=== PATIENT | male | born 1965 | race Caucasian/White ===

== ENCOUNTER 2018-05-28 19:38 | Emergency (ER) | payer BC ==
--- NOTE | 2018-05-28 20:44 | CT ---
NONCONTRAST ENHANCED CT IMAGES ABDOMEN AND PELVIS: 05/28/18 Comparison made to previous exam from 10/26/16. HISTORY: Hematuria. Left sided pain. Noncontrast enhanced CT images of the abdomen and pelvis demonstrates the lung bases to be unremarkab le. No evidence of free intraperitoneal air seen. The liver, spleen, pancreas, gallbladder, adrenal glands and right kidney are unremarkable. There is a moderate degree of left sided hydronephrosis. There is a 6 x 7 x 12 mm proximal left ureteral calculus at the left ureteropelvic junction. This is a large obstructing calculus resulting in the left sided hydronephrosis. More distally, the left ure ter is decompressed. The urinary bladder is unremarkable. IMPRESSION: 6 x 7 x 12 mm obstructing proximal left ureteral calculus. POS: [facility]
[2018-05-28 20:54] LABS: Bilirubin Negative (Negative); Blood, Urine Large (Negative); Clarity CLEAR (Clear); Glucose, Urine (Dipstick) Negative (Negative); Leukocyte Negative (Negative); Nitrite Negative (Negative); Protein, Urine (Dipstick) Negative (Neg-Trace); Specific Gravity, Urine 1.002 (1.002-1.036); Urobilinogen 0.2 mg/dL (0.2-1.0); pH, Urine 6.5 (5.0-9.0)
[2018-05-28 20:57] LABS: Bacteria/HPF None Seen HPF (None Seen); Hyaline Casts/LPF 0-3 HYALINE CAST LPF (0-3 Hyaline); RBC/HPF GREATER THAN 50-TNTC HPF (0-3); Squamous Epithelial None Seen HPF (0-3); WBC/HPF 0-3 HPF (0-3)
[2018-05-28 21:38] LABS: #Basophils 0.1 thou/uL (0.0-0.2); #Eosinphils 0.1 thou/uL (0.0-0.7); #Lymphocytes 3.3 thou/uL (1.20-3.40); #Monocytes 0.6 thou/uL (0.11-0.59); #Neutrophils 6.5 thou/uL (1.40-6.50); %Basophils 1.3 % (0.0-1.0); %Eosinophils 1.1 % (0.0-10.0); %Lymphocytes 31.1 % (21.0-51.0); %Monocytes 5.8 % (0.0-10.0); %Neutrophils 60.7 % (42.0-75.0); Hemoglobin 14.7 g/dL (14.0-18.0); Mean Corpuscular HGB CONC 33.7 g/dL (32.0-36.0); Mean Corpuscular Hemoglobin 31.5 pg (27.0-31.0); Mean Corpuscular Volume 93.5 fL (78.0-98.0); Mean Platelet Volume 6.2 fL (7.4-10.4); Platelet Count 270 thou/uL (130-400); RBC Distribution Width 11.9 % (11.5-14.5); Red Blood Cell (RBC) Count 4.65 mill/uL (4.70-6.10); White Blood Cell (WBC) Count 10.7 thou/uL (4.8-10.8)
[2018-05-28] MEDS ORDERED: HYDROcodone/Acetaminophen 5/325 mg Tablet ONE (21:40)
[2018-05-28 22:05] LABS: Anion Gap 11 mmol/L (10-20); BUN (Urea Nitrogen) 13 mg/dL (8.4-25.7); Calc. Creatinine Clearance 0 mL/min (70-130); Calcium 9.2 mg/dL (7.8-10.44); Carbon Dioxide 24 mmol/L (22-29); Chloride 107 mmol/L (98-107); Estimated GFR-MDRD Greater than 90; Glucose 93 mg/dL (70-105); Potassium 3.5 mmol/L (3.5-5.1); Sodium 138 mmol/L (136-145)
== END 2018-05-28 22:45 | disposition home or self-care (01) ==
LOC: ERS 19:38
DX: N13.2 Hydronephrosis with renal and ureteral calculous obstruction (principal); F17.210 Nicotine dependence, cigarettes, uncomplicated
CPT/HCPCS: 36415; 74176; 80048; 81003; 81015; 85025

== ENCOUNTER 2018-05-30 10:49 | Day surgery (SDC) | payer BC ==
[2018-05-30] MEDS ORDERED: Iothalamate Meglumine 60% 50 ML VIAL FS ONE (11:45)
[2018-05-30] MEDS ORDERED: Lidocaine 1% PF 5 ML VIAL ONE (12:50)
[2018-05-30] MEDS ORDERED: Ondansetron PF 4 MG/2 ML Vial ONE (12:50)
[2018-05-30] MEDS ORDERED: Dexamethasone 20 MG/5 ML VIAL ONE (12:50)
[2018-05-30] MEDS ORDERED: PHENYLEPHRINE-NS 100 MCG/ML 10 ML SYRINGE ONE (12:50)
[2018-05-30] MEDS ORDERED: Metoclopramide HCl 10 MG/2 ML VIAL ONE (12:50)
[2018-05-30] MEDS ORDERED: PROPOFOL 200 MG/20 ML VIAL ONE (12:50)
[2018-05-30] MEDS ORDERED: Midazolam HCl 2 mg/2 ml Vial ONE ×2 (13:09→13:12)
[2018-05-30] MEDS ORDERED: Fentanyl 100 MCG/2 ML VIAL ONE (13:12)
[2018-05-30] MEDS ORDERED: Levofloxacin 500 mg/D5W 100 ml Premix Bag ONE (13:24)
[2018-05-30] MEDS ORDERED: HYDROcodone/Acetaminophen 5/325 mg Tablet ONE (15:23)
--- NOTE | 2018-05-31 14:28 | OP ---
DATE OF PROCEDURE: 05/30/2018 PREOPERATIVE DIAGNOSIS: Left ureteral stone. POSTOPERATIVE DIAGNOSIS: Left ureteral stone. PROCEDURE: Cystoscopy, left retrograde pyelogram, insertion of ureteral stent 6 x 26. SURGEON: Sherrell Reynoso M.D. ANESTHESIA: General (desk airway). FINDINGS: Adequate placement of the stent after passing a wedged stone, mild hydronephrosis. COMPLICATIONS: No complications. Drain remaining, 6 x 28 Double J. SPECIMENS: Urine from left renal pelvis. ESTIMATED BLOOD LOSS: No blood loss. INDICATIONS: This is a 52-year-old male who was seen in the ER 2 days prior and presented to [facility] with concerns for obstructing left stone and persistent renal colic, so elected for urgent stent. The patient was brought to the room by Anesthesia and laid on table in supine position. After receiv ing general anesthetic, the patient was placed in lithotomy position. Perineum was prepped and drape d in sterile fashion. Using a 21-Sudanese cystoscope and a 30 degree lens, urethra was traversed and t he bladder inspected. The prostatic urethra showed no significant hypertrophy and was relatively markell rt. The bladder itself was without lesion. The ureteral orifices were in normal position and the le ft was intubated with a Pollack catheter up to the level of stone where the Pollack catheter could no t pass the stone, so a wire was used to pass the stone and then with significant pressure due to the wedging of the stone, the Pollack catheter was advanced beyond the stone over the wire and into the r enal pelvis where hydronephrotic drip was noted. Approximately 6 mL of pink-tinged urine was extract ed and sent for specimen. Retrograde pyelogram performed revealed mild hydronephrosis. Measurements were taken and then a 6 x 26 double-J was placed over a wire after removing the Pollack. A good coi l was visualized in the renal pelvis via fluoroscopy. A good coil was visualized in the bladder via cystoscopy. The scope was broken apart, bladder drained and then removed in its entirety. The patie nt tolerated procedure well and was then awakened and transferred to PACU in stable condition.
--- NOTE | 2018-06-04 08:14 | EKG ---
Test Reason : PREOP Blood Pressure : / mmHG Vent. Rate : 083 BPM Atrial Rate : 083 BPM P-R Int : 162 ms QRS Dur : 100 ms QT Int : 362 ms P-R-T Axes : 067 041 054 degrees QTc Int : 425 ms Normal sinus rhythm Normal ECG When compared with ECG of 24-SEP-2015 15:12, No significant change was found Confirmed by DR. Lionel MORE ([id number]) on 06/04/2018 8:14:40 AM Referred By: MARK Confirmed By:DR. Lionel MORE
== END 2018-05-30 15:50 | disposition home or self-care (01) ==
LOC: SDC 10:49
PROVIDERS: ATTEND Urology
PROC: 0T778DZ Dilation of Left Ureter with Intraluminal Device, Via Natural or Artificial Opening Endoscopic (ICD-10-PCS; principal; 2018-05-30)
DX: N13.2 Hydronephrosis with renal and ureteral calculous obstruction (principal); F17.200 Nicotine dependence, unspecified, uncomplicated
CPT/HCPCS: 74420; 81001; 87070; 87205; 93005; 93010; C1758; J1100; J1956; J2001; J2250; J2405; J2704; J2765; J3010; Q9961

== ENCOUNTER 2018-06-09 11:01 | Outpatient (CLI) | payer BC ==
[2018-06-09 12:15] LABS: Anion Gap 12 mmol/L (10-20); BUN (Urea Nitrogen) 13 mg/dL (8.4-25.7); Calc. Creatinine Clearance 0 mL/min (70-130); Calcium 9.5 mg/dL (7.8-10.44); Carbon Dioxide 26 mmol/L (22-29); Chloride 107 mmol/L (98-107); Estimated GFR-MDRD Greater than 90; Glucose 106 mg/dL (70-105); Potassium 4.1 mmol/L (3.5-5.1); Sodium 141 mmol/L (136-145)
[2018-06-09 12:20] LABS: Hemoglobin 14.6 g/dL (14.0-18.0); Mean Corpuscular HGB CONC 34.1 g/dL (32.0-36.0); Mean Corpuscular Hemoglobin 31.4 pg (27.0-31.0); Mean Corpuscular Volume 92.3 fL (78.0-98.0); Mean Platelet Volume 6.4 fL (7.4-10.4); Platelet Count 346 thou/uL (130-400); RBC Distribution Width 11.9 % (11.5-14.5); Red Blood Cell (RBC) Count 4.64 mill/uL (4.70-6.10); White Blood Cell (WBC) Count 8.9 thou/uL (4.8-10.8)
== END 2018-06-09 11:02 | disposition home or self-care (01) ==
LOC: LABBT 11:01
PROVIDERS: ATTEND Urology
DX: Z01.812 Encounter for preprocedural laboratory examination (principal); N20.1 Calculus of ureter; R35.1 Nocturia; Z12.5 Encounter for screening for malignant neoplasm of prostate
CPT/HCPCS: 80048; 81001; 85027; 87086; G0103

== ENCOUNTER 2018-06-10 06:33 | Day surgery (SDC) | payer BC ==
[2018-06-09 11:09] VITALS: BMI 28.7
[2018-06-10] MEDS ORDERED: Iothalamate Meglumine 60% 50 ML VIAL FS ONE (07:05)
[2018-06-10] MEDS ORDERED: Fentanyl 100 MCG/2 ML VIAL ONE (07:13)
[2018-06-10] MEDS ORDERED: Midazolam HCl 2 mg/2 ml Vial ONE (07:19)
[2018-06-10] MEDS ORDERED: Levofloxacin 500 mg/D5W 100 ml Premix Bag ONE (07:19)
--- NOTE | 2018-06-10 07:46 | RAD ---
KUB: Date: 06/10/18 INDICATION: Preop evaluation. COMPARISON: CT abdomen and pelvis without IV contrast dated 05/28/18. FINDINGS: There has been interval placement of a left ureteral stent. The proximal left ureteral stone seen at the L3 transverse process level is not appreciably changed. The stone measures approximately 1.2 x 0. 7 cm. Small phleboliths seen within the lower right hemipelvis. Bowel gas pattern is unobstructed. No acute osseous abnormality is evident. IMPRESSION: Stable proximal left ureteral stone with left ureteral stent placement. POS: [facility]
[2018-06-10] MEDS ORDERED: Furosemide 20 MG/2 ML VIAL ONE (08:43)
[2018-06-10] MEDS ORDERED: SUGAMMADEX SODIUM 200 MG/2 ML VIAL ONE (09:18)
[2018-06-10] MEDS ORDERED: SUGAMMADEX SODIUM 500 MG/5 ML VIAL ONE (09:18)
[2018-06-10] MEDS ORDERED: Phenazopyridine HCl 97.5 MG TABLET ONE ×2 (10:05)
--- NOTE | 2018-06-10 10:53 | OP ---
DATE OF PROCEDURE: 06/10/2018 PREOPERATIVE DIAGNOSIS: Left ureteral stone. POSTOPERATIVE DIAGNOSIS: Left ureteral stone. PROCEDURE: Cystoscopy, left ureteroscopy, left pyeloscopy, holmium laser lithotripsy, stone basketin g, stent placement 6 x 26. SURGEON: Sherrell Reynoso M.D. ANESTHESIA: General with endotracheal tube. FINDINGS: Adequate fragmentation of the stone as it migrated into the kidney itself with extraction of all sizable fragments. SPECIMENS: Stone. COMPLICATIONS: None. DRAIN REMAINING: A 6 x 26 double-J with a string. INDICATIONS: The patient is a 52-year-old male who is followed in the office and seen prior to the [facility] break and had an urgent stent placed for a large obstructing left ureteral stone. Given the density of the stone by CT scan I opted for laser lithotripsy via ureteroscopy versus ESWL in hop es that that would limit the procedures required and so we proceeded. TECHNIQUE: The patient was brought into the room by Anesthesia, laid on the table in supine position . After a general anesthetic his legs placed in lithotomy position and his perineum was prepped and draped in sterile fashion. The left leg was lowered. The right leg was elevated and then a cystosco pe was used to enter the bladder and grabbed the stent and brought out through the urethral meatus. A wire was placed through this and then the old stent was removed leaving the wire in place. Then, t he rigid ureteroscope was used to try to get to the level of stone; however, the angulation at the pe lvic brim was unable to accommodate the rigid scope so the scope was removed and then a double lumen catheter was placed in order to leave a second Super Stiff wire and then a larger ureteral catheter w as placed over that wire and up to the level of the stone. So now there was a safety wire and the Goodman per Stiff wire which was removed leaving the ureteral catheter in place, approximately 2-3 cm below t he stone. Then, the flexible ureteroscope was used to go over the Super Stiff wire before removing i t to the level of the stone where holmium laser lithotripsy was performed. Dusting was only partiall y effective so I switched to fragmentation; however, by this point, the stone and gone into the kidne y and into one of the calices that was chased into there, unable to adequately fragment it into multi ple smaller pieces which were then extracted. One was quite large and brought to the ureteral cathet er and then the holmium laser was used to fragment that again as it migrated again into the renal pel vis, but it was adequately fragmented and then all fragments were removed. I returned to the marilyn w here a good portion of fragmentation returned and at this point, there was only debris and some mucou s, but anything significant was extracted and sent out for specimen and a final pass into the renal u nit and ureter showed no significant fragments remaining, so at this point, the ureteral catheter was removed leaving the safety wire intact and then that was back fed over the cystoscope and a 6 x 26 d ouble-J was placed with the coil visualized in the renal pelvis, but somewhat extended to the upper p ole and a coil visualized in the bladder via cystoscopy. Scope was broken apart, bladder drained and removed carefully so as not to disturb the string which was then secured to the patient's penis. Th e patient was then awakened and transferred to PACU in stable condition.
[2018-06-10] MEDS ORDERED: Lidocaine 1% PF 5 ML VIAL ONE (16:30)
[2018-06-10] MEDS ORDERED: PHENYLEPHRINE-NS 100 MCG/ML 10 ML SYRINGE ONE (16:30)
[2018-06-10] MEDS ORDERED: Dexamethasone 20 MG/5 ML VIAL ONE (16:30)
[2018-06-10] MEDS ORDERED: Glycopyrrolate 0.2 MG/ML 5 ML SYRINGE ONE (16:30)
[2018-06-10] MEDS ORDERED: ePHEDrine/0.9% NaCl/PF SYRINGE 50 mg/10 ml ONE (16:30)
[2018-06-10] MEDS ORDERED: Ondansetron PF 4 MG/2 ML Vial ONE (16:30)
[2018-06-10] MEDS ORDERED: PROPOFOL 200 MG/20 ML VIAL ONE (16:30)
== END 2018-06-10 11:35 | disposition home or self-care (01) ==
LOC: SDC 06:33
PROVIDERS: ATTEND Urology
PROC: 0T778DZ Dilation of Left Ureter with Intraluminal Device, Via Natural or Artificial Opening Endoscopic (ICD-10-PCS; principal; 2018-06-10)
PROC: 0TF78ZZ Fragmentation in Left Ureter, Via Natural or Artificial Opening Endoscopic (ICD-10-PCS; principal; 2018-06-10)
DX: N20.1 Calculus of ureter (principal)
CPT/HCPCS: 74018; 80048; 81001; 82365; 85027; 87086; 88300; C1758; G0103; J1100; J1940; J1956; J2001; J2250; J2405; J2704; J3010; Q9961

== ENCOUNTER 2019-03-17 15:50 | Emergency (ER) | payer BC | END 2019-03-17 16:30 | disposition home or self-care (01) | LOC: SCSER 15:50 | DX: J02.9 Acute pharyngitis, unspecified (principal); Z87.442 Personal history of urinary calculi; F17.220 Nicotine dependence, chewing tobacco, uncomplicated; F17.290 Nicotine dependence, other tobacco product, uncomplicated | CPT/HCPCS: 87081; 87430; 99283 ==